=== PATIENT | female | born 1985 | race Caucasian/White ===

== ENCOUNTER 2021-05-26 13:30 | Observation (INO) | payer BC ==
[~2021-05-26] VITALS: Ht 165.1 cm; Wt 97.7 kg
[2021-05-26 16:34] LABS: HEMATOCRIT 40.6 % (37.0-47.0); HEMOGLOBIN 13.6 g/dl (12.0-16.0); IMMATURE GRANULOCYTES 0.5 % (0.0-5.0); MEAN CELL VOLUME 90.8 fL CALC (80.0-100.0); MEAN CORPUSCULAR HGB 30.4 pG CALC (26.0-32.0); MEAN CORPUSCULAR HGB CONC 33.5 g/dL CAL (32.0-36.0); NEUT# 2.51 thou/uL (2.00-7.15); RED BLOOD COUNT 4.47 mill/uL (4.20-5.60); RED CELL DISTRI WIDTH 12.8 % (11.5-15.5)
[2021-05-26 16:47] LABS: ALBUMIN 3.9 g/dL (3.2-5.0); ALKALINE PHOSPHATASE 99 u/l (38-126); ANION GAP 13 (6-22 (CALC)); BILIRUBIN, TOTAL 0.3 mg/dL (0.0-1.4); BUN 13 mg/dL (7-17); BUN/CREATININE RATIO 22 (12-20 (CALC)); C-REACTIVE PROTEIN 3.7 mg/dL (0-0.9); CARBON DIOXIDE 27 mmol/l (22-30); CHLORIDE 101 mmol/l (95-108); CREATININE 0.6 mg/dL (0.5-1.0); GFR > 60 ML/MIN (>=60 (CALC)); GFR FOR AFR.AMER. > 60 ML/MIN (>=60 (CALC)); POTASSIUM 3.6 mmol/l (3.5-5.1); SGOT/AST 52 u/l (14-36); SODIUM 137 mmol/l (137-146); TOTAL PROTEIN 7.2 g/dL (6.3-8.2)
[2021-05-26 20:00] VITALS: BP 115/52
[2021-05-27] VITALS: BP 114/65
[2021-05-27 04:00] VITALS: BP 115/68
[2021-05-27 06:42] LABS: BUN 11 mg/dL (7-17); BUN/CREATININE RATIO 21 (12-20 (CALC)); C-REACTIVE PROTEIN 3.2 mg/dL (0-0.9); CARBON DIOXIDE 26 mmol/l (22-30); CHLORIDE 104 mmol/l (95-108); CREATININE 0.5 mg/dL (0.5-1.0); GFR > 60 ML/MIN (>=60 (CALC)); GFR FOR AFR.AMER. > 60 ML/MIN (>=60 (CALC)); SODIUM 139 mmol/l (137-146)
[2021-05-27 06:46] LABS: ANION GAP 14 (6-22 (CALC)); POTASSIUM 4.8 mmol/l (3.5-5.1)
[2021-05-27 06:56] LABS: HEMATOCRIT 38.4 % (37.0-47.0); HEMOGLOBIN 12.8 g/dl (12.0-16.0); MEAN CELL VOLUME 91.4 fL CALC (80.0-100.0); MEAN CORPUSCULAR HGB 30.5 pG CALC (26.0-32.0); MEAN CORPUSCULAR HGB CONC 33.3 g/dL CAL (32.0-36.0); NEUT# 1.14 thou/uL (2.00-7.15); RED BLOOD COUNT 4.2 mill/uL (4.20-5.60); RED CELL DISTRI WIDTH 12.8 % (11.5-15.5)
[2021-05-27 08:10] VITALS: BP 129/83
[2021-05-27 11:01] VITALS: BP 123/80
[2021-05-27 15:25] VITALS: BP 130/77
[2021-05-27 18:00] VITALS: BP 133/89
[2021-05-28] VITALS: BP 122/85
[2021-05-28 04:00] VITALS: BP 125/81
[2021-05-28 05:47] LABS: HEMATOCRIT 36.2 % (37.0-47.0); HEMOGLOBIN 12.2 g/dl (12.0-16.0); IMMATURE GRANULOCYTES 0.8 % (0.0-5.0); MEAN CELL VOLUME 91.4 fL CALC (80.0-100.0); MEAN CORPUSCULAR HGB 30.8 pG CALC (26.0-32.0); MEAN CORPUSCULAR HGB CONC 33.7 g/dL CAL (32.0-36.0); NEUT# 4.53 thou/uL (2.00-7.15); RED BLOOD COUNT 3.96 mill/uL (4.20-5.60); RED CELL DISTRI WIDTH 12.9 % (11.5-15.5)
[2021-05-28 05:56] LABS: ALBUMIN 3.2 g/dL (3.2-5.0); ALKALINE PHOSPHATASE 76 u/l (38-126); ANION GAP 9 (6-22 (CALC)); BILIRUBIN, TOTAL 0.2 mg/dL (0.0-1.4); BUN 14 mg/dL (7-17); BUN/CREATININE RATIO 30 (12-20 (CALC)); CARBON DIOXIDE 26 mmol/l (22-30); CHLORIDE 108 mmol/l (95-108); CREATININE 0.5 mg/dL (0.5-1.0); GFR > 60 ML/MIN (>=60 (CALC)); GFR FOR AFR.AMER. > 60 ML/MIN (>=60 (CALC)); SGOT/AST 39 u/l (14-36); SODIUM 140 mmol/l (137-146); TOTAL PROTEIN 5.8 g/dL (6.3-8.2)
[2021-05-28 10:47] VITALS: BP 121/80
[2021-05-28] MEDS ORDERED: TESSALON PERLE100 MG PO (13:20)
[2021-05-28] MEDS ORDERED: ZITHROMAX250 MG PO (13:20)
[2021-05-28] MEDS ORDERED: DEXAMETHASON6 MG PO (13:20)
[2021-05-28 15:02] VITALS: BP 124/80
== END 2021-05-28 15:33 | disposition home or self-care (01) | DRG 177 ==
LOC: ED 13:30 → ED-I 17:26 → ED 17:58 → MS2 17:59
PROVIDERS: Family Medicine; Nurse Practitioner; ADMIT Internal Medicine; ATTEND Internal Medicine
PROC: XW033E5 Introduction of Remdesivir Anti-infective into Peripheral Vein, Percutaneous Approach, New Technology Group 5 (ICD-10-PCS; principal; 2021-05-27)
DX: U07.1 COVID-19 (principal); J12.82 Pneumonia due to coronavirus disease 2019; R09.02 Hypoxemia; F41.9 Anxiety disorder, unspecified; E28.2 Polycystic ovarian syndrome
CPT/HCPCS: G0378; J1650